=== PATIENT | female | born 1955 | race Caucasian/White ===

== ENCOUNTER 2017-10-24 22:17 | Emergency (ER) | payer BC ==
[2017-10-24] MEDS ORDERED: Ibuprofen TAB* 600 MG PO ONE (23:05)
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
[2017-10-25 00:49] VITALS: BP 132/89
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
== END 2017-10-25 00:47 | disposition home or self-care (01) ==
LOC: ED 22:17
DX: M25.552 Pain in left hip (principal); M25.551 Pain in right hip; R10.9 Unspecified abdominal pain
CPT/HCPCS: 99282; A9270-GY

== ENCOUNTER 2018-10-31 17:34 | Emergency (ER) | payer BC, OTHER ==
[2018-10-31 17:52] VITALS: BP 119/81
--- NOTE | 2018-10-31 19:19 | UC ---
Shoulder Pain HPI - History of Current Complaint Chief Complaint: UCUpperExtremity Stated Complaint: SHOULDER INJURY Time Seen by Provider: 10/31/18 19:16 Hx Obtained From: Patient Pain Intensity: 5 - Allergies/Home Medications Allergies/Adverse Reactions: Allergies Allergy/AdvReac Type Severity Reaction Status Date / Time Penicillins Allergy Rash Verified 10/31/18 17:52 Sulfa (Sulfonamide Allergy Hives Verified 10/31/18 17:52 Antibiotics) Home Medications: Home Medications NK [No Home Medications Reported] 10/31/18 [History Confirmed 10/31/18] PMH/Surg Hx/FS Hx/Imm Hx Previously Healthy: Yes Respiratory History: Other - Sleep apnea - Surgical History Surgical History: Yes Surgery Procedure, Year, and Place: 2011 FACE/NECK LIFT, 1996 SINUS SX,1983 BILAT BUNECTOMY,1963 T&A,EAR SURGERY ( TUBES IN EARS - A CHILD) - Family History Known Family History: Positive: Non-Contributory - Social History Occupation: Employed Full-time Lives: With Family Alcohol Use: Rare Substance Use Type: None Smoking Status (MU): Never Smoked Tobacco Have You Smoked in the Last Year: No Review of Systems All Other Systems Reviewed And Are Negative: Yes Physical Exam - Summary Physical Exam Summary: GENERAL APPEARANCE: Well developed, well nourished, alert and cooperative, and appears to be in no acute distress. CARDIAC: Normal S1 and S2. No S3, S4 or murmurs. Rhythm is regular. There is no peripheral edema, cyanosis or pallor. Extremities are warm and well perfused. Capillary refill is less than 2 seconds. Peripheral pulses intact. LUNGS: Clear to auscultation without rales, rhonchi, wheezing or diminished breath sounds. ABDOMEN: Positive bowel sounds. Soft, nondistended, nontender. No guarding or rebound. No masses or hepatosplenomegally. MUSKULOSKELETAL: ROM intact to all extremities. No joint erythema or tenderness. Normal muscular development. Normal gait. SKIN: Skin normal color, texture and turgor with no lesions or eruptions. Triage Information Reviewed: Yes Vital Signs: Initial Vital Signs Temp 97.9 F 10/31/18 17:46 Pulse 68 10/31/18 17:46 Resp 18 10/31/18 17:46 BP 119/81 10/31/18 17:46 Pulse Ox 98 10/31/18 17:46 Vital Signs Reviewed: Yes Shoulder Course/Dx - Differential Dx/Diagnosis Differential Diagnosis/HQI/PQRI: Bursitis, Dislocation, Fracture (Open), Sprain Discharge ED - Sign-Out/Discharge Documenting (check all that apply): Patient Departure All imaging exams completed and their final reports reviewed: No - Discharge Plan Condition: Stable Disposition: HOME Referrals: Apryl Martinez MD [Primary Care Provider] - - Billing Disposition and Condition Condition: STABLE Disposition: Home
--- NOTE | 2018-10-31 19:40 | UC ---
Shoulder Pain HPI - HPI Summary HPI Summary: 62 yo female with long standing issue with left thoracic outlet syndrome diagnoses and treated by a specialist in [place]. 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[employer] she is right handed she is here preparing to move to [place] in a month desires PT referal has left scalene pain tenderness with numbness down left arm denies posterior neck pain - History of Current Complaint Chief Complaint: UCUpperExtremity Stated Complaint: SHOULDER INJURY Time Seen by Provider: 10/31/18 19:16 Hx Obtained From: Patient Onset/Duration: Sudden Onset Timing: Constant Severity Initially: Mild Severity Currently: Moderate Pain Intensity: 5 Character: Aching, Spasmodic Aggravating Factor(s): Movement Alleviating Factor(s): Rest Associated Signs And Symptoms: Positive: Numbness/Tingling Related History: Dominant Hand Right Torso: 1 - pain 2 - numbness - Allergies/Home Medications Allergies/Adverse Reactions: Allergies Allergy/AdvReac Type Severity Reaction Status Date / Time Penicillins Allergy Rash Verified 10/31/18 17:52 Sulfa (Sulfonamide Allergy Hives Verified 10/31/18 17:52 Antibiotics) Home Medications: Home Medications NK [No Home Medications Reported] 10/31/18 [History Confirmed 10/31/18] PMH/Surg Hx/FS Hx/Imm Hx Previously Healthy: Yes - Surgical History Surgical History: Yes Surgery Procedure, Year, and Place: 2011 FACE/NECK LIFT, 1996 SINUS SX,1983 BILAT BUNECTOMY,1963 T&A,EAR SURGERY ( TUBES IN EARS - A CHILD) - Family History Known Family History: Positive: Hypertension - Social History Alcohol Use: Rare Substance Use Type: None Smoking Status (MU): Never Smoked Tobacco Have You Smoked in the Last Year: No Review of Systems All Other Systems Reviewed And Are Negative: Yes Constitutional: Positive: Negative Skin: Positive: Negative Eyes: Positive: Negative ENT: Positive: Negative Respiratory: Positive: Negative Cardiovascular: Positive: Negative Gastrointestinal: Positive: Negative Genitourinary: Positive: Negative Motor: Positive: Negative Neurovascular: Positive: Negative Musculoskeletal: Positive: Myalgia Neurological: Positive: Numbness Psychological: Positive: Negative Physical Exam Triage Information Reviewed: Yes Appearance: Well-Appearing, No Pain Distress, Well-Nourished Vital Signs: Initial Vital Signs Temp 97.9 F 10/31/18 17:46 Pulse 68 10/31/18 17:46 Resp 18 10/31/18 17:46 BP 119/81 10/31/18 17:46 Pulse Ox 98 10/31/18 17:46 Eye Exam: Normal Eyes: Positive: Conjunctiva Clear ENT: Positive: Hearing grossly normal. Negative: Nasal congestion, Nasal drainage, Trismus, Uvula midline Neck: Positive: Supple, Nontender, No Lymphadenopathy Respiratory: Positive: Lungs clear, Normal breath sounds, No respiratory distress, No accessory muscle use Cardiovascular: Positive: RRR. Negative: Tachycardia, Bradycardia Musculoskeletal: Positive: ROM Intact, No Edema, Other: - n/v intact, no decreased pulses/good cap refill/ warm Neurological: Positive: Alert Psychological Exam: Normal Skin Exam: Normal Shoulder Course/Dx - Differential Dx/Diagnosis Provider Diagnosis: Thoracic outlet syndrome of left thoracic outlet Discharge ED - Sign-Out/Discharge Documenting (check all that apply): Patient Departure All imaging exams completed and their final reports reviewed: No Studies - Discharge Plan Condition: Stable Disposition: HOME Patient Education Materials: Thoracic Outlet Syndrome (ED) Referrals: Aiden Byrne MD [Medical Doctor] - As Soon As Possible Additional Instructions: PT consult I suggest you see Dr. Byrne Recheck for new or worsening symptoms - Billing Disposition and Condition Condition: STABLE Disposition: Home
== END 2018-10-31 19:49 | disposition home or self-care (01) ==
LOC: UCEAST 17:34
DX: G54.0 Brachial plexus disorders (principal)
CPT/HCPCS: 99211; G0463